=== PATIENT | male | born 1960 | race African-American/Black ===

== ENCOUNTER 2019-01-09 15:09 | Emergency (ER) | payer OTHER ==
[2019-01-09 15:15] VITALS: BP 124/97; PULSE 89; TEMP 98.4; BMI 28.7
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
[2019-01-09] MEDS ORDERED: IBUPROFEN 400 MG TABLET (FP) PO ONE ×2 (16:00→16:06)
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
== END 2019-01-09 16:58 | disposition home or self-care (01) ==
LOC: JERFT 15:09
DX: M25.511 Pain in right shoulder (principal); W22.8XXA Striking against or struck by other objects, initial encounter; Y93.89 Activity, other specified; Y92.89 Other specified places as the place of occurrence of the external cause
CPT/HCPCS: 73030-TC-RT-FY; 99281-25

== ENCOUNTER 2020-12-06 19:41 | Emergency (ER) | payer OTHER ==
[2020-12-06 19:53] VITALS: BP 122/86; PULSE 81; TEMP 98.6; BMI 28.7
[2020-12-06 20:40] LABS: BASO % 0.6 % (0-2.0); HEMATOCRIT 44.4 % (35.4-49); HEMOGLOBIN 14.8 GM/dL (11.7-16.9); LYMPH % 43.6 % (8-40); MCH 24.2 pg (25.7-33.7); MCHC 33.4 g/dl (32.0-35.9); MEAN CELL VOLUME 72.5 fl (80-96); MONO % 8.5 % (3.8-10.2); NEUT % 45.3 % (42.8-82.8); PLATELET COUNT 171 K/MM3 (134-434); RBC 6.12 M/mm3 (4.00-5.60); RDW 13.4 % (11.9-15.9); WHITE BLOOD COUNT 7.2 K/mm3 (4.0-10.0)
[2020-12-06 20:42] LABS: VENOUS BASE EXCESS 3.6 mmol/L (-2-2); VENOUS O2 SATURATION 54.3 % (70-80); VENOUS PCO2 56.1 mmHg (38-52); VENOUS PH 7.356 (7.310-7.410)
[2020-12-06 20:55] LABS: ALBUMIN 4.1 g/dl (3.4-5.0); CALCIUM 9.8 mg/dL (8.5-10.1)
[2020-12-06 21:00] LABS: CREATININE 1.3 mg/dL (0.55-1.3)
[2020-12-06 21:01] LABS: TOT PROT 8.8 g/dl (6.4-8.2)
[2020-12-06 21:06] LABS: EPI CELLS 1 /uL (0-25.1); HYALINE CASTS 0 /uL (0-3.1); PH,URINE 5.5 (5.0-8.0); URINE APPEARANCE CLEAR; URINE BACTERIA 3 /uL (0-1359); URINE BILIRUBIN NEGATIVE (NEGATIVE); URINE COLOR YELLOW; URINE GLUCOSE (UA) 3+ (NEGATIVE); URINE KETONE NEGATIVE (NEGATIVE); URINE LEUK ESTERASE NEGATIVE (NEGATIVE); URINE NITRITE NEGATIVE (NEGATIVE); URINE PROTEIN NEGATIVE (NEGATIVE); URINE RBC 23 /uL (0-23.9); URINE UROBILINOGEN 0.2 mg/dL (0.2-1.0); URINE WBC 2 /uL (0-25.8)
[2020-12-06] MEDS ORDERED: SODIUM CHLORIDE 0.9% 500 ML INFUS.BAG IV ONE (21:24)
[2020-12-06] MEDS ORDERED: INSULIN REGULAR HUMAN 100 UNITS/ML *VIAL SQ ONE (21:25)
== END 2020-12-06 21:43 | disposition home or self-care (01) ==
LOC: JER 19:41
DX: E11.65 Type 2 diabetes mellitus with hyperglycemia (principal)
CPT/HCPCS: 36415; 80053; 81003; 82010; 82803; 82962; 85025; 87086; 99284-25

== ENCOUNTER 2020-12-15 04:50 | Day surgery (SDC) | payer OTHER ==
[2020-12-14 08:52] VITALS: BMI 28.0
[2020-12-15 10:18] VITALS: TEMP 97.1
[2020-12-15 11:05] VITALS: BP 120/75; PULSE 58
== END 2020-12-15 11:18 | disposition home or self-care (01) ==
LOC: JASU-ENDO 04:50
PROVIDERS: ATTEND Internal Medicine Gastroenterology
PROC: 0DJD8ZZ Inspection of Lower Intestinal Tract, Via Natural or Artificial Opening Endoscopic (ICD-10-PCS; principal; 2020-12-15 09:15)
DX: Z12.11 Encounter for screening for malignant neoplasm of colon (principal); K64.8 Other hemorrhoids
CPT/HCPCS: 82962

== ENCOUNTER 2024-07-13 11:02 | Observation (INO) | payer OTHER ==
[2024-07-13] MEDS: SODIUM CHLORIDE 1,000 ML IV STA (11:49)
[2024-07-13 12:31] LABS: VENOUS BASE EXCESS 4.4 mmol/L (-2-2); VENOUS O2 SATURATION 25.9 % (70-80); VENOUS PCO2 56.6 mmHg (38-52); VENOUS PH 7.362 (7.310-7.410)
[2024-07-13 12:33] LABS: BASO % 0.2 % (0-2.0); EOS % 2.6 % (0-4.5); HEMATOCRIT 41.7 % (35.4-49); HEMOGLOBIN 13.4 GM/dL (11.7-16.9); LYMPH % 33.1 % (8-40); MCHC 32.2 g/dl (32.0-35.9); MEAN CELL VOLUME 74.7 fl (80-96); MEAN PLT VOLUME 8.9 fl (7.5-11.1); MONO % 10.6 % (3.8-10.2); NEUT % 53.5 % (42.8-82.8); PLATELET COUNT 192 10^3/uL (134-434); RBC 5.58 M/mm3 (4.00-5.60); RDW 14.2 % (11.9-15.9); WHITE BLOOD COUNT 6.5 K/mm3 (4.0-10.0)
[2024-07-13 12:54] LABS: CHLORIDE 88 mmol/L (98-107); POTASSIUM 4.8 mmol/L (3.5-5.1); SODIUM 126 mmol/L (136-145)
[2024-07-13 12:57] LABS: CALCIUM 9.4 mg/dL (8.5-10.1)
[2024-07-13 12:59] LABS: ANION GAP 6 mmol/L (4-13); BLOOD UREA NITROGEN 16.3 mg/dL (7-18); CO2 32 mmol/L (21-32); MAGNESIUM 1.7 mg/dL (1.8-2.4)
[2024-07-13 13:02] LABS: CREATININE 1.5 mg/dL (0.55-1.3); PHOSPHOROUS 3.6 mg/dL (2.5-4.9); SGOT/AST 18 U/L (15-37); SGPT/ALT 24 U/L (13-61)
[2024-07-13 13:03] LABS: BILIRUBIN,TOTAL 1.2 mg/dL (0.2-1); TOT PROT 7.9 g/dl (6.4-8.2)
[2024-07-13 13:05] LABS: ALK PHOS 123 U/L (45-117)
[2024-07-13 13:12] LABS: GLUCOSE,RANDOM 721 mg/dL (74-106)
[2024-07-13 13:55] LABS: HIV INTERPRETATION NEGATIVE (NEGATIVE)
[2024-07-13] MEDS: LACTATED RINGERS SOLUTION 1,000 ML/1,000 ML INFUS.BAG IV STA (14:20)
[2024-07-13] MEDS: FAMOTIDINE 20 MG/50 ML IVPB 20 MG/50 ML MG IVPB ONE (14:20)
[2024-07-13] MEDS ORDERED: FAMOTIDINE 20 MG/50 ML IVPB 20 MG/50 ML MG IVPB ONE (14:20)
[2024-07-13] MEDS ORDERED: ONDANSETRON 4 MG/2 ML VIAL ONE (16:22)
[2024-07-13] MEDS: ONDANSETRON 4 MG/2 ML VIAL IVPUSH ONE (16:30)
[2024-07-13 16:50] LABS: POTASSIUM 3.6 mmol/L (3.5-5.1)
[2024-07-13 16:52] LABS: BLOOD UREA NITROGEN 13.8 mg/dL (7-18); CALCIUM 9.3 mg/dL (8.5-10.1)
[2024-07-13 16:56] LABS: CREATININE 1.1 mg/dL (0.55-1.3)
[2024-07-13] MEDS: FAMOTIDINE 20 MG TABLET PO ONE (21:24)
[2024-07-13] MEDS: ATORVASTATIN CA 40 MG TABLET (FP) PO ONE (21:24)
[2024-07-13] MEDS: INSULIN (NOVOLOG) ASPART 100 UNITS/ML 10ML VIAL SQ SCH (23:52)
[2024-07-13] MEDS ORDERED: INSULIN ASPART SLIDING SCALE (NOVOLOG) 1 VIAL SQ ONE (23:55)
[2024-07-14] MEDS: INSULIN (NOVOLOG) ASPART 100 UNITS/ML 10ML VIAL SQ ONE
[2024-07-14 01:40] VITALS: BMI 25.9
[2024-07-14] MEDS: metFORMIN HCL 500 MG TABLET (FP) PO SCH (06:06)
[2024-07-14] MEDS: INSULIN ASPART SLIDING SCALE (NOVOLOG) 1 VIAL SQ SCH (06:07)
[2024-07-14 06:43] VITALS: TEMP 98.2
[2024-07-14] MEDS ORDERED: ALBUTEROL SO4 HFA INHALER IH PRN (08:12)
[2024-07-14 09:40] LABS: HEMATOCRIT 42.3 % (35.4-49); HEMOGLOBIN 14.7 GM/dL (11.7-16.9); MCH 24.9 pg (25.7-33.7); MCHC 34.6 g/dl (32.0-35.9); MEAN PLT VOLUME 8.6 fl (7.5-11.1); PLATELET COUNT 222 10^3/uL (134-434); RBC 5.88 M/mm3 (4.00-5.60); RDW 14.1 % (11.9-15.9); WHITE BLOOD COUNT 7.6 K/mm3 (4.0-10.0)
[2024-07-14 09:51] LABS: POTASSIUM 3.7 mmol/L (3.5-5.1)
[2024-07-14 09:53] LABS: BLOOD UREA NITROGEN 12.9 mg/dL (7-18); CALCIUM 9.7 mg/dL (8.5-10.1); MAGNESIUM 1.7 mg/dL (1.8-2.4)
[2024-07-14 09:57] LABS: CREATININE 1.2 mg/dL (0.55-1.3); PHOSPHOROUS 3.1 mg/dL (2.5-4.9)
[2024-07-14 10:00] LABS: CHOLESTEROL 88 mg/dL (50-200)
[2024-07-14] MEDS ORDERED: LISINOPRIL 5 MG TABLET PO SCH (10:00)
[2024-07-14] MEDS ORDERED: metFORMIN HCL 500 MG TABLET (FP) PO SCH (10:00)
[2024-07-14 10:01] LABS: LDL CHOLESTEROL (ONLY SJRH) 40 mg/dL (5-100)
[2024-07-14 10:03] LABS: HDL CHOLESTEROL 34 mg/dL (40-60)
[2024-07-14] MEDS: glipiZIDE 5 MG TABLET (FP) PO ONE (12:39)
[2024-07-14] MEDS: BUDESONIDE/FORMETEROL FUMARATE 160/4.5 mcg INHALER IH SCH (12:45)
[2024-07-14] MEDS: LOSARTAN POTASSIUM 25 MG TABLET PO SCH (13:59)
[2024-07-14] MEDS: CHLORTHALIDONE 25 MG TABLET PO SCH (14:11)
[2024-07-14 14:52] VITALS: RESP 18
[2024-07-14 15:35] VITALS: BP 92/64; PULSE 78
[2024-07-14] MEDS ORDERED: ATORVASTATIN CA 40 MG TABLET (FP) PO SCH (22:00)
== END 2024-07-14 15:34 | disposition home or self-care (01) ==
LOC: JER 11:02 → JERBED 16:42 → J6S 07-14 01:18
PROVIDERS: ADMIT Internal Medicine; ATTEND Internal Medicine
PROC: 3E033GC Introduction of Other Therapeutic Substance into Peripheral Vein, Percutaneous Approach (ICD-10-PCS; principal; 2024-07-13)
PROC: 3E0337Z Introduction of Electrolytic and Water Balance Substance into Peripheral Vein, Percutaneous Approach (ICD-10-PCS; 2024-07-13)
PROC: 3E033VG Introduction of Insulin into Peripheral Vein, Percutaneous Approach (ICD-10-PCS; 2024-07-13)
PROC: 3E0F7SF Introduction of Other Gas into Respiratory Tract, Via Natural or Artificial Opening (ICD-10-PCS; 2024-07-13)
DX: E11.00 Type 2 diabetes mellitus with hyperosmolarity without nonketotic hyperglycemic-hyperosmolar coma (NKHHC) (principal); E11.65 Type 2 diabetes mellitus with hyperglycemia; I10 Essential (primary) hypertension; Z79.84 Long term (current) use of oral hypoglycemic drugs
CPT/HCPCS: 0241U-QW; 36415; 71045-TC-FY; 80048; 80053; 80061; 82010; 82803; 82962; 83036; 83605; 83690; 83735; 84100; 84443; 84484; 85025; 85027; 86803; 87086; 87389; 93005; 93010; 94640; 96361; 96365; 96372; 99285-25; G0378